=== PATIENT | male | born 1990 | race Caucasian/White ===

== ENCOUNTER 2024-03-17 08:13 | Emergency (ER) | payer OTHER ==
[~2024-03-17] VITALS: Ht 170.1 cm; Wt 81.6 kg
[~2024-03-17 08:13] MED LIST: ANAPROX DS550 MG PO; HYDROCODONE BIT1 T11 PO; NKHM; TRAMADOL HCL50 MG PO
[2024-03-17 08:19] VITALS: BP 137/91
[2024-03-17] MEDS ORDERED: Ondansetron Hydrochloride 4 MG/2 ML VIAL IV ONE (08:35)
[2024-03-17] MEDS ORDERED: HYDROmorphONE Hydrochloride 0.5 MG/0.5 ML SYRINGE IV ONE (08:35)
[2024-03-17] MEDS ORDERED: SODIUM CHLORIDE 0.9% 1,000 ML IV ONE (08:35)
[2024-03-17] MEDS ORDERED: SODIUM CHLORIDE 0.9% 500 ML IV ONE (08:49)
[2024-03-17 08:57] LABS: BASO % 0.6 % (0.0-1.0); EOS # 0.1 10*3/uL (0.0-0.4); EOS % 1.1 % (1.0-4.0); HEMATOCRIT 44.9 % (42.0-52.0); LYMPH # 1.3 10*3/uL (1.3-4.4); LYMPH % 18.3 % (27.0-41.0); MEAN CELL VOLUME 86.3 fl (80.0-94.0); MEAN CORPUSCULAR HGB 31.2 pg (27.0-31.0); MEAN CORPUSCULAR HGB CONC 36.1 g/dl (33.0-37.0); MEAN PLATELET VOLUME 9.6 fl (9.6-12.3); MONO # 0.4 10*3/uL (0.1-1.0); NEUT # 5.3 10*3/uL (2.3-7.9); NEUT % 74.7 % (47.0-73.0); PLATELET COUNT AUTOMATED 311 10*3/uL (130-400); RED CELL DISTRI WIDTH 12.2 % (0-14.5); WHITE BLOOD COUNT 7.1 10*3/uL (4.8-10.8)
[2024-03-17 09:07] LABS: ACT PARTIAL THROMBO TIME 27.6 SECONDS (20.0-32.1)
[2024-03-17 09:14] LABS: ALKALINE PHOSPHATASE 109 U/L (46-116); BUN 9 mg/dl (9-23); CHLORIDE 106 mmol/L (98-107); LIPASE 40 U/L (12-53); SGPT/ALT 42 U/L (5-49); TOTAL PROTEIN 7.1 gm/dL (6.0-8.0)
[2024-03-17 12:58] LABS: BILIRUBIN Negative (Negative); BLOOD Negative (Negative); CLARITY Clear (Clear); COLOR Yellow (Yellow); GLUCOSE Negative (Negative); KETONE Negative (Negative); LEUKO ESTERASE Negative (Negative); NITRITE Negative (Negative); PH 5.5 (4.5-8.0)
[2024-03-17] MEDS ORDERED: MIRALAX POWDER17 G1 PO (13:04)
[2024-03-17] MEDS ORDERED: PROTONIX40 MG PO (13:04)
[2024-03-17 13:17] LABS: BACTERIA TRACE; EPITHELIAL CELLS 0-2; MUCOUS 1+
== END 2024-03-17 13:13 | disposition home or self-care (01) ==
LOC: ED 08:13
PROVIDERS: Emergency Medicine
DX: K82.8 Other specified diseases of gallbladder (principal); K29.00 Acute gastritis without bleeding; R11.2 Nausea with vomiting, unspecified; Z98.890 Other specified postprocedural states

== ENCOUNTER 2025-07-13 22:03 | Emergency (ER) | payer OTHER ==
[~2025-07-13] VITALS: Ht 167.6 cm; Wt 86.2 kg
[~2025-07-13 22:03] MED LIST changes: +MIRALAX POWDER17 G1 PO; +PROTONIX40 MG PO
[2025-07-13 22:12] VITALS: BP 148/88
== END 2025-07-13 22:19 | disposition home or self-care (01) ==
LOC: ED 22:03
DX: Z00.00 Encounter for general adult medical examination without abnormal findings (principal); Z79.899 Other long term (current) drug therapy